=== PATIENT | male | born 1975 | race African-American/Black ===

== ENCOUNTER 2019-11-07 | Emergency (ER) | payer OTHER ==
[2019-11-07] MEDS ORDERED: Lidocaine 1% 30 ML SDV INJECT ONE (00:36)
--- NOTE | 2019-11-07 00:39 | EDM.PDOC ---
ED HPI GENERAL MEDICAL PROBLEM - General Chief Complaint: Upper Extremity Injury/Pain Stated Complaint: NEEDS HANDS CHECKED OUT Time Seen by Provider: 11/07/19 00:37 Source of Information: Reports: Patient History Limitations: Reports: No Limitations - History of Present Illness INITIAL COMMENTS - FREE TEXT/NARRATIVE: punched glass TV and other things. explained to pt since he cannot extend his fingers then he will need hand surgeon which this place lacks and also x-rays review F/B inside tissues. also he will need IV ABX which he promptly declined despite warning of infections and possible lost of hands. pt states has done this many times before and he is fine with it. states really didn't want to come here but the [employer] developer insisted and he didn't know he had just wasted his time since no surgeon is here. to avoid further confrontation with this unhappy PT I asked what he would like. Pt replied with I want to leave and is willing to sign a release form and he will make his own way to [place]. Left Hand Pain Score (Numeric/FACES): 4 - Related Data Allergies Allergy/AdvReac Type Severity Reaction Status Date / Time No Known Allergies Allergy Verified 11/07/19 00:15 Home Meds: Home Meds . [No Known Home Meds] 11/07/19 [History] Past Medical History - Past Surgical History Other Musculoskeletal Surgeries/Procedures:: hand surgery Social & Family History - Family History Family Medical History: Noncontributory - Tobacco Use Smoking Status *Q: Current Every Day Smoker Years of Tobacco use: 20 Packs/Tins Daily: 0.5 - Caffeine Use Caffeine Use: Reports: Coffee - Alcohol Use Date of Last Drink: 11/06/19 Time of Last Drink: 17:00 - Recreational Drug Use Recreational Drug Use: Yes Drug Use in Last 12 Months: Yes Recreational Drug Type: Reports: Marijuana/Hashish Recreational Drug Use Frequency: Not Used In Over 1 Month Review of Systems - Review of Systems Review Of Systems: Comprehensive ROS is negative, except as noted in HPI. ED EXAM, GENERAL - Physical Exam Exam: See Below Exam Limited By: No Limitations General Appearance: Alert, WD/WN, Mild Distress, Other (discomfort) Ears: Hearing Grossly Normal Throat/Mouth: Normal Voice, No Airway Compromise Head: Atraumatic Neck: Non-Tender, Full Range of Motion Respiratory/Chest: No Respiratory Distress Cardiovascular: Regular Rate, Rhythm GI/Abdominal: Soft, Non-Tender Extremities: Other (lac left hand dorsum across PMJ region 4", right hand 2" lac medial edge. wound are contaminated, unable to extend fingers on both hands, ) Neurological: Alert, Oriented, Normal Cognition, Normal Gait, No Motor/Sensory Deficits Psychiatric: Flat Affect Skin Exam: Warm, Dry, Normal Color Lymphatic: No Adenopathy Course - Vital Signs Last Recorded V/S: Last Vital Signs Temp 37.1 C 11/07/19 00:04 Pulse 70 11/07/19 00:16 Resp 19 11/07/19 00:16 BP 132/93 H 11/07/19 00:16 Pulse Ox 100 11/07/19 00:16 - Orders/Labs/Meds Orders: Active Orders 24 hr Category Date Time Status Hand Comp Min 3V Bi [CR] Urgent Exams 11/07/19 00:15 Stop Req Hand Comp Min 3V Lt [CR] Urgent Exams 11/07/19 00:19 Ordered Hand Comp Min 3V Rt [CR] Urgent Exams 11/07/19 00:19 Ordered Meds: Medications Discontinued Medications Generic Name Dose Route Start Last Admin Trade Name Freq PRN Reason Stop Dose Admin Lidocaine HCl 30 ml 11/07/19 00:36 Xylocaine-Mpf 1% INJECT 11/07/19 00:37 ONETIME ONE Departure - Departure Time of Disposition: 01:02 Disposition: Against Medical Advice 07 Condition: Poor Clinical Impression: Laceration of hand involving extensor tendon Qualifiers: Encounter type: initial encounter Laterality: left Qualified Code(s): S61.412A - Laceration without foreign body of left hand, initial encounter; S66.822A - Laceration of other specified muscles, fascia and tendons at wrist and hand level, left hand, initial encounter Laceration of hand Qualifiers: Encounter type: initial encounter Foreign body presence: with foreign body Laterality: right Qualified Code(s): S61.421A - Laceration with foreign body of right hand, initial encounter Laceration of hand with foreign body Qualifiers: Encounter type: initial encounter Laterality: left Qualified Code(s): S61.422A - Laceration with foreign body of left hand, initial encounter - Discharge Information Forms: Refusal of Care AMA Sepsis Event Note (ED) - Evaluation Sepsis Screening Result: No Definite Risk - Focused Exam Vital Signs: Vital Signs Temp Pulse Resp BP Pulse Ox 11/07/19 00:16 70 19 132/93 H 100 11/07/19 00:04 37.1 C 72 7 L 143/102 H 98 - My Orders Last 24 Hours: My Active Orders 11/07/19 00:15 Hand Comp Min 3V Bi [CR] Urgent 11/07/19 00:19 Hand Comp Min 3V Lt [CR] Urgent Hand Comp Min 3V Rt [CR] Urgent - Assessment/Plan Last 24 Hours: My Active Orders 11/07/19 00:15 Hand Comp Min 3V Bi [CR] Urgent 11/07/19 00:19 Hand Comp Min 3V Lt [CR] Urgent Hand Comp Min 3V Rt [CR] Urgent
== END 2019-11-07 00:58 | disposition left against medical advice (07) ==
LOC: DL.ED
DX: S66.822A Laceration of other specified muscles, fascia and tendons at wrist and hand level, left hand, initial encounter (principal); S61.421A Laceration with foreign body of right hand, initial encounter; S61.422A Laceration with foreign body of left hand, initial encounter; F17.210 Nicotine dependence, cigarettes, uncomplicated; X99.0XXA Assault by sharp glass, initial encounter
CPT/HCPCS: 73130-LT; 73130-RT; 99283-25; 99284